=== PATIENT | female | born 1975 | race Caucasian/White ===

== ENCOUNTER → 2016-10-23 | Outpatient (CLI) | payer OTHER ==
[~2016-10-23] MED LIST: ALPR0.25 PO; ASPI-515 PO; CEPH-368 PO; OXYC-302 PO; PANT40TA3 PO; PHEN15CA PO; TAMO20TA PO; [UNRECOGNIZED DRUG - OTHER] PO
== END | disposition home or self-care (01) ==
LOC: ROC 15:12
PROVIDERS: ATTEND Radiology Radiation Oncology
DX: C50.411 Malignant neoplasm of upper-outer quadrant of right female breast (principal)
CPT/HCPCS: 99213; G0463

== ENCOUNTER → 2017-01-11 | Outpatient (CLI) | payer OTHER ==
[~2017-01-11] MED LIST changes: -PHEN15CA PO; +PHEN15CA2 PO
== END | disposition home or self-care (01) ==
LOC: CFH 12:30
PROVIDERS: ATTEND Radiology Radiation Oncology
DX: Z12.31 Encounter for screening mammogram for malignant neoplasm of breast (principal); Z85.3 Personal history of malignant neoplasm of breast; Z92.3 Personal history of irradiation; Z90.11 Acquired absence of right breast and nipple
CPT/HCPCS: 77063; G0202

== ENCOUNTER → 2017-01-22 | Outpatient (CLI) | payer OTHER | END | disposition home or self-care (01) | LOC: PETCFH 08:05 | PROVIDERS: ATTEND Specialist | DX: C50.411 Malignant neoplasm of upper-outer quadrant of right female breast (principal) | CPT/HCPCS: 78306; A9503 ==

== ENCOUNTER → 2017-02-09 | Outpatient (CLI) | payer OTHER ==
[~2017-02-09] MED LIST changes: +OMNIPAQUE 350 MG/ML, 75ML BOTTLE ONE
== END | disposition home or self-care (01) ==
LOC: CFH 08:40
PROVIDERS: ATTEND Internal Medicine Critical Care Medicine
DX: J98.4 Other disorders of lung (principal); C50.411 Malignant neoplasm of upper-outer quadrant of right female breast; Q75.3 Macrocephaly; Z90.49 Acquired absence of other specified parts of digestive tract
CPT/HCPCS: 71260; Q9967

== ENCOUNTER → 2017-04-28 | Outpatient (CLI) | payer OTHER ==
[~2017-04-28] MED LIST changes: -OMNIPAQUE 350 MG/ML, 75ML BOTTLE ONE
== END | disposition home or self-care (01) ==
LOC: ROC 07:41
PROVIDERS: ATTEND Radiology Radiation Oncology
DX: Z08 Encounter for follow-up examination after completed treatment for malignant neoplasm (principal); C50.411 Malignant neoplasm of upper-outer quadrant of right female breast
CPT/HCPCS: 99212; G0463

== ENCOUNTER 2018-07-19 08:34 | Outpatient (CLI) | payer OTHER ==
[2018-07-19 10:07] LABS: MICROSCOPIC NOT IND
[2018-07-19 10:07] LABS: BASOPHILS # (AUTO) 0.01 x10^3/uL (0-0.1); BASOPHILS % (AUTO) 0 % (0-1); EOSINOPHILS # (AUTO) 0.05 x10^3/uL (0-0.4); EOSINOPHILS % (AUTO) 1 % (1-7); LYMPHOCYTES # (AUTO) 1.46 x10^3/uL (1-3.4); LYMPHOCYTES % (AUTO) 22 % (22-44); MD NO; MEAN CORPUSCULAR HEMOGLOBIN 29.1 pg (27.0-34.8); MEAN CORPUSCULAR HGB CONC 33.2 g/dL (32.4-35.8); MEAN CORPUSCULAR VOLUME 87.5 fL (80-100); MEAN PLATELET VOLUME 7.1 fL (7.4-10.4); MONOCYTES # (AUTO) 0.45 x10^3/uL (0.2-0.8); MONOCYTES % (AUTO) 7 % (2-9); NEUTROPHILS # (AUTO) 4.68 x10^3/uL (1.8-6.8); NEUTROPHILS % (AUTO) 71 % (42-75); PLATELET COUNT 267 x10^3/uL (130-400); RED BLOOD COUNT 4.78 x10^6/uL (3.82-5.3); RED CELL DISTRIBUTION WIDTH 13.1 % (9.6-15.2)
[2018-07-19 10:10] LABS: CULTURE INDICATED? NO
== END 2018-07-19 23:59 | disposition home or self-care (01) ==
LOC: STAR 08:34
PROVIDERS: ATTEND Obstetrics & Gynecology
DX: Z01.818 Encounter for other preprocedural examination (principal); N93.8 Other specified abnormal uterine and vaginal bleeding; Z88.2 Allergy status to sulfonamides
CPT/HCPCS: 36415; 81003; 85025

== ENCOUNTER 2018-08-02 11:19 | Inpatient (IN) | payer OTHER ==
[~2018-08-02] VITALS: Ht 149.9 cm; Wt 65.0 kg
[2018-08-02] MEDS ORDERED: LACTATED RINGERS 1,000 ML IV SCH (11:59)
[2018-08-02 12:08] VITALS: BP 113/79
[2018-08-02] MEDS ORDERED: METOPROLOL 1 MG/ML, 5ML IV PRN (12:30)
[2018-08-02] MEDS ORDERED: MEPERIDINE/PF 25MG/0.5ML IVPush PRN (12:30)
[2018-08-02] MEDS ORDERED: PROMETHAZINE 25 MG/ML, 1ML IV PRN (12:30)
[2018-08-02] MEDS ORDERED: HYDROmorphone 2 MG/ML, 1ML IVPush PRN (12:30)
[2018-08-02] MEDS ORDERED: hydrALAzine 20 MG/ML, 1ML IV PRN (12:30)
[2018-08-02] MEDS ORDERED: LABETALOL 5MG/ML, 20ML IV PRN (12:30)
[2018-08-02] MEDS ORDERED: HALOPERIDOL 5 MG/ML IV PRN (12:30)
[2018-08-02] MEDS ORDERED: PROCHLORPERAZINE 5 MG/ML, 2ML IV PRN (12:30)
[2018-08-02] MEDS ORDERED: OXYcodone 5 MG/5 ML ORAL.SOL UDC PO PRN (12:30)
[2018-08-02] MEDS ORDERED: FENTANYL PF 100 MCG/2ML IV PRN (12:30)
[2018-08-02 12:42] LABS: HCG UR SG 1.022 (1.003-1.030)
[2018-08-02] MEDS ORDERED: BUPIVACAINE/PF 0.25% ONE (13:18)
[2018-08-02] MEDS ORDERED: FLUORESCEIN SODIUM 500 MG/5 ML ONE (13:18)
[2018-08-02] MEDS ORDERED: EPINEPHRINE 1 MG/ML, 1ML ONE (13:18)
[2018-08-02] MEDS ORDERED: FENTANYL PF 250 MCG/5ML ONE (13:27)
[2018-08-02] MEDS ORDERED: MIDAZOLAM 1 MG/ML, 2ML ONE (13:28)
[2018-08-02] MEDS ORDERED: BUPIVACAINE/PF 0.25% INFIL ONE ×2 (14:08→14:09)
[2018-08-02] MEDS ORDERED: SUCCINYLCHOLINE 20 MG/ML, 10ML ONE (14:54)
[2018-08-02] MEDS ORDERED: DEXAMETHASONE 4 MG/ML, 1ML ONE (14:54)
[2018-08-02] MEDS ORDERED: ROCURONIUM 10MG/ML,5ML ONE (14:54)
[2018-08-02] MEDS ORDERED: ONDANSETRON 2MG/ML, 2ML ONE (14:54)
[2018-08-02] MEDS ORDERED: NEOSTIGMINE 1 MG/ML, 10ML ONE (14:54)
[2018-08-02] MEDS ORDERED: GLYCOPYRROLATE 0.2MG/1ML, 5ML ONE (14:54)
[2018-08-02] MEDS ORDERED: PROPOFOL 10 MG/ML, 20ML ONE (14:54)
[2018-08-02] MEDS ORDERED: CEFAZOLIN 1,000 MG ONE (14:54)
[2018-08-02] MEDS ORDERED: KETOROLAC 30 MG/1 ML IVPush STA (15:25)
[2018-08-02] MEDS ORDERED: FENTANYL PF 100 MCG/2ML ONE (15:28)
[2018-08-02] MEDS ORDERED: ACETAMINOPHEN 650 MG/20.3 ML UDC ONE ×2 (15:28→16:58)
[2018-08-02] MEDS ORDERED: MEPERIDINE/PF 25MG/ML,1ML ONE (15:28)
[2018-08-02] MEDS ORDERED: KETOROLAC 30 MG/1 ML ONE (15:28)
[2018-08-02] MEDS ORDERED: OXYcodone 5 MG/5 ML ORAL.SOL UDC ONE ×2 (15:29→17:13)
[2018-08-02] MEDS ORDERED: ACETAMINOPHEN 325 MG TABLET PO PRN ×2 (17:00→19:00)
[2018-08-02] MEDS ORDERED: INSTRUCTION SEE COMMENTS XX PRN (19:00)
[2018-08-02] MEDS ORDERED: OXYcodone/APAP 5/325MG TABLET PO PRN (19:00)
[2018-08-02] MEDS ORDERED: morphine SULFATE 10 MG/ML, 1ML IV PRN (19:00)
[2018-08-02] MEDS ORDERED: ACETAMINOPHEN 650 MG SUPP PR PRN (19:00)
[2018-08-02] MEDS: ONDANSETRON 2MG/ML, 2ML IV PRN ×2 (19:09→22:03)
[2018-08-02 19:56] VITALS: BP 124/85
[2018-08-02] MEDS ORDERED: IBUPROFEN 600 MG TABLET PO SCH (21:00)
[2018-08-02] MEDS ORDERED: DOCUSATE 100 MG CAPSULE PO SCH (21:00)
== END 2018-08-02 22:03 | disposition home or self-care (01) | DRG 743 ==
LOC: OUT 11:19 → 4NOR 18:14 → OUT 18:23 → 4NOR 18:23
PROVIDERS: ADMIT Obstetrics & Gynecology; ATTEND Obstetrics & Gynecology
PROC: 0TJB8ZZ Inspection of Bladder, Via Natural or Artificial Opening Endoscopic (ICD-10-PCS; 2018-08-02)
PROC: 0UT9FZZ Resection of Uterus, Via Natural or Artificial Opening With Percutaneous Endoscopic Assistance (ICD-10-PCS; principal; 2018-08-02 13:30)
DX: N93.8 Other specified abnormal uterine and vaginal bleeding (principal); D64.9 Anemia, unspecified; K66.8 Other specified disorders of peritoneum; K21.9 Gastro-esophageal reflux disease without esophagitis; N83.292 Other ovarian cyst, left side; Z85.3 Personal history of malignant neoplasm of breast; Z98.51 Tubal ligation status; Z79.810 Long term (current) use of selective estrogen receptor modulators (SERMs)
CPT/HCPCS: 81025; 88307; G0378; J0171; J0690; J1100; J1885; J2175; J2250; J2405; J2704; J2710; J3010; J3490; J0330; J2270

== ENCOUNTER 2018-09-02 08:16 | Outpatient (CLI) | payer OTHER | END 2018-09-02 23:59 | disposition home or self-care (01) | LOC: ROC 08:16 | PROVIDERS: ATTEND Radiology Radiation Oncology | DX: C50.411 Malignant neoplasm of upper-outer quadrant of right female breast (principal) | CPT/HCPCS: 99213; G0463 ==

== ENCOUNTER → 2019-10-19 | Outpatient (CLI) | payer OTHER | END | disposition home or self-care (01) | LOC: ROC 07:14 | PROVIDERS: ATTEND Radiology Radiation Oncology | DX: Z08 Encounter for follow-up examination after completed treatment for malignant neoplasm (principal); Z85.3 Personal history of malignant neoplasm of breast | CPT/HCPCS: 99213; G0463 ==

== ENCOUNTER 2020-09-20 14:09 | Outpatient (CLI) | payer OTHER ==
[~2020-09-20 14:09] MED LIST changes: -ASPI-515 PO; +ASPI-963 PO; -OXYC-302 PO; +OXYC1TAB14 PO
[2020-09-20] MEDS ORDERED: OMNIPAQUE 350 MG/ML, 75ML BOTTLE ONE (15:10)
[2020-09-20] MEDS ORDERED: GADOTERATE 10 MMOL/20 ML VIAL ONE (15:30)
== END 2020-09-20 23:59 | disposition home or self-care (01) ==
LOC: RAD 14:09
PROVIDERS: ATTEND Internal Medicine Hematology & Oncology
DX: C50.411 Malignant neoplasm of upper-outer quadrant of right female breast (principal); R94.5 Abnormal results of liver function studies; R91.1 Solitary pulmonary nodule; R91.8 Other nonspecific abnormal finding of lung field
CPT/HCPCS: 71260; 74183; A9575; Q9967